=== PATIENT | female | born 1945 | race African-American/Black ===

== ENCOUNTER → 2017-10-27 | Outpatient (CLI) | payer MEDICARE, BC ==
[~2017-10-27] MED LIST: ASPI-1159 PO; BECL8.7A6 IH; CLOP75TA16 PO; COR3 PO; COUMADIN PO; ERGO2500 PO; FURO-152 PO; LEVO125T8 PO; LOSA25TA3 PO; MONT10TA21 PO; POTA10TA11 PO; PROT40 PO; SIMV40TA5 PO; ZET10 PO
== END | disposition home or self-care (01) ==
LOC: CT 15:56
PROVIDERS: ATTEND Neurological Surgery
DX: M51.26 Other intervertebral disc displacement, lumbar region (principal); M48.061 Spinal stenosis, lumbar region without neurogenic claudication; N28.1 Cyst of kidney, acquired; N20.0 Calculus of kidney; I77.811 Abdominal aortic ectasia; K57.90 Diverticulosis of intestine, part unspecified, without perforation or abscess without bleeding
CPT/HCPCS: 72131

== ENCOUNTER 2018-03-02 15:41 | Inpatient (IN) | payer MEDICARE, BC ==
[~2018-03-02] VITALS: Ht 154.9 cm; Wt 50.8 kg
[2018-03-02] MEDS ORDERED: AZITHROMYCIN 500 MG in DEXT 5% WATER 250 ML IV ONE (16:45)
[2018-03-02] MEDS ORDERED: CEFTRIAXONE 2 G PREMIX 50 ML IV ONE (16:45)
[2018-03-02 17:31] LABS: BASOPHILS % 0.4 % (0.0-2.0); EOSINOPHILS % 0.9 % (0.0-5.0); HEMATOCRIT. 35.5 % (36.0-48.0); HEMOGLOBIN. 11.7 g/dL (12.0-16.0); LYMPHOCYTES % 28.2 % (20.0-50.0); MEAN CORPUSCULAR HEMOGLOBIN 29.5 pg (28.0-32.0); MEAN CORPUSCULAR VOLUME 89.5 fL (81.0-99.0); MEAN PLATELET VOLUME 7.6 fl (7.4-10.4); MONOCYTES % 9.7 % (2.0-8.0); NEUTROPHILS % 60.8 % (40.0-76.0); PLATELET 217 x1000/uL (130-400); RED BLOOD CELL COUNT 3.96 mill/uL (4.2-5.4); RED CELL DISTRIBUTION WIDTH 15.9 % (11.6-14.6)
[2018-03-02 17:38] LABS: CHLORIDE 109 mEq/L (98-107)
[2018-03-02 17:39] LABS: PROTHROMBIN TIME 10.4 sec (9.1-11.1)
[2018-03-02] MEDS ORDERED: SODIUM CHLORIDE 0.9% 1,000 ML IV ONE (17:52)
[2018-03-02 19:24] LABS: CLARITY URINE CLEAR (CLEAR); COLOR URINE YELLOW (YELLOW); KETONES URINE NEGATIVE (NEGATIVE); LEUKOCYTE ESTERASE URINE 1+ (NEGATIVE); NITRITE URINE NEGATIVE (NEGATIVE); OCCULT BLOOD URINE NEGATIVE (NEGATIVE); PH URINE 5.5 (4.5-8.0); PROTEIN URINE TRACE (NEGATIVE)
[2018-03-02] MEDS ORDERED: CLONIDINE 0.1MG TABLET PO PRN (23:15)
[2018-03-02] MEDS ORDERED: ENOXAPARIN 40MG/0.4ML SYR SUBCUT SCH (23:15)
[2018-03-02] MEDS: HYDROMORPHONE HCL/PF 2MG/ML CPJ IV PRN (23:35)
[2018-03-03] VITALS (7 sets, daily range): BP systolic 117–138; BP diastolic 64–77
[2018-03-03] MEDS: AZITHROMYCIN 500 MG in DEXT 5% WATER 250 ML IV SCH (00:11)
[2018-03-03] MEDS: LORAZEPAM 2MG/ML CPJ IV PRN (05:13)
[2018-03-03] MEDS ORDERED: METHYLPREDNISOLONE SOD SUCC 125 MG/2 ML VIAL IV SCH (06:00)
[2018-03-03] MEDS ORDERED: CEFTRIAXONE SODIUM 1 G/VIAL IM SCH (06:00)
[2018-03-03] MEDS: IPRATROPIUM/ALBUTEROL 0.5-3(2.5)MG/3ML NEB HHN PRN ×2 (08:01→14:50)
[2018-03-03] MEDS ORDERED: ENOXAPARIN 30MG/0.3ML SYR SUBCUT SCH (09:00)
[2018-03-03] MEDS: HYDROMORPHONE HCL/PF 2MG/ML CPJ IV PRN ×2 (10:27→22:10)
[2018-03-03] MEDS: POTASSIUM CHLORIDE 20MEQ TABLET SR PO SCH (12:22)
[2018-03-03] MEDS: FUROSEMIDE 40MG TABLET PO SCH (12:22)
[2018-03-03 13:17] LABS: HEMATOCRIT. 34.6 % (36.0-48.0); HEMOGLOBIN. 11.3 g/dL (12.0-16.0); MEAN CORPUSCULAR HEMOGLOBIN 29.4 pg (28.0-32.0); MEAN PLATELET VOLUME 8.2 fl (7.4-10.4); PLATELET 236 x1000/uL (130-400); RED BLOOD CELL COUNT 3.84 mill/uL (4.2-5.4); RED CELL DISTRIBUTION WIDTH 15.6 % (11.6-14.6)
[2018-03-03] MEDS: ONDANSETRON HCL 4MG/2ML INJ IV PRN (14:45)
[2018-03-03] MEDS: BUDESONIDE 0.5MG/2ML NEB HHN SCH (14:50)
[2018-03-03] MEDS ORDERED: SODIUM CHLORIDE 45ML SPRAY NS PRN (15:00)
[2018-03-03 16:48] LABS: PLATELET ESTIMATE NORMAL
[2018-03-03] MEDS: GUAIFENESIN 600MG ER TABLET PO SCH (20:47)
[2018-03-03] MEDS: ACETAMINOPHEN 325MG TABLET PO PRN (20:48)
[2018-03-03] MEDS: FLUTICASONE PROPIONATE 50MCG/SPRAY BOTTLE BOTHNSTRLS SCH (21:00)
[2018-03-04] VITALS: BP 132/74
[2018-03-04] MEDS: AZITHROMYCIN 500 MG in DEXT 5% WATER 250 ML IV SCH ×2
[2018-03-04] MEDS: ONDANSETRON HCL 4MG/2ML INJ IV PRN (03:15)
[2018-03-04] MEDS: BUDESONIDE 0.5MG/2ML NEB HHN SCH ×3 (03:57→21:38)
[2018-03-04] MEDS: IPRATROPIUM/ALBUTEROL 0.5-3(2.5)MG/3ML NEB HHN PRN ×2 (03:58→08:36)
[2018-03-04 04:00] VITALS: BP 139/71
[2018-03-04 08:00] VITALS: BP 123/59
[2018-03-04] MEDS ORDERED: INFLUENZA VIRUS VACCINE(AFLURIA) 0.5ML SYR IM ONE (09:00)
[2018-03-04] MEDS ORDERED: PNEUMOCOCCAL 23-VAL P-SAC VAC 0.5 ML IM ONE (09:00)
[2018-03-04] MEDS ORDERED: ENOXAPARIN 40MG/0.4ML SYR SUBCUT SCH (09:00)
[2018-03-04] MEDS: FUROSEMIDE 40MG TABLET PO SCH (09:13)
[2018-03-04] MEDS: POTASSIUM CHLORIDE 20MEQ TABLET SR PO SCH (09:13)
[2018-03-04] MEDS: GUAIFENESIN 600MG ER TABLET PO SCH ×2 (09:13→20:50)
[2018-03-04 10:08] LABS: BASOPHILS % 0.3 % (0.0-2.0); EOSINOPHILS % 0.7 % (0.0-5.0); HEMATOCRIT. 34.3 % (36.0-48.0); LYMPHOCYTES % 22.8 % (20.0-50.0); MEAN CORPUSCULAR HEMOGLOBIN 29.1 pg (28.0-32.0); MEAN CORPUSCULAR VOLUME 90.6 fL (81.0-99.0); MEAN PLATELET VOLUME 8.3 fl (7.4-10.4); MONOCYTES % 9.2 % (2.0-8.0); PLATELET 224 x1000/uL (130-400); RED BLOOD CELL COUNT 3.79 mill/uL (4.2-5.4)
[2018-03-04 12:00] VITALS: BP 134/80
[2018-03-04] MEDS: LORAZEPAM 2MG/ML CPJ IV PRN (12:31)
[2018-03-04] MEDS: FLUTICASONE PROPIONATE 50MCG/SPRAY BOTTLE BOTHNSTRLS SCH ×2 (12:31→20:59)
[2018-03-04 16:00] VITALS: BP 145/82
[2018-03-04] MEDS: IPRATROPIUM/ALBUTEROL 0.5-3(2.5)MG/3ML NEB HHN SCH ×2 (16:40→21:38)
[2018-03-04] MEDS: HYDROMORPHONE HCL/PF 2MG/ML CPJ IV PRN (17:05)
[2018-03-04] MEDS: CEFTRIAXONE 1 G PREMIX 50 ML IV SCH (18:34)
[2018-03-04] MEDS ORDERED: ALPRAZOLAM 0.5 MG TABLET PO PRN (18:45)
[2018-03-05] VITALS: BP 109/66
[2018-03-05] MEDS: AZITHROMYCIN 500 MG in DEXT 5% WATER 250 ML IV SCH (00:17)
[2018-03-05] MEDS: ALPRAZOLAM 0.5 MG TABLET PO PRN ×2 (00:17→22:07)
[2018-03-05] MEDS: ACETYLCYSTEINE 100MG/ML 10% VIAL 4ML INH SCH ×3 (01:09→16:28)
[2018-03-05] MEDS: IPRATROPIUM/ALBUTEROL 0.5-3(2.5)MG/3ML NEB HHN SCH ×6 (01:09→20:49)
[2018-03-05 04:00] VITALS: BP 112/54
[2018-03-05 05:30] LABS: BASOPHILS % 0.7 % (0.0-2.0); EOSINOPHILS % 1.5 % (0.0-5.0); HEMATOCRIT. 30.6 % (36.0-48.0); HEMOGLOBIN. 10.1 g/dL (12.0-16.0); LYMPHOCYTES % 33.4 % (20.0-50.0); MEAN CORPUSCULAR HEMOGLOBIN 29.4 pg (28.0-32.0); MEAN CORPUSCULAR VOLUME 89.1 fL (81.0-99.0); MONOCYTES % 6.2 % (2.0-8.0); NEUTROPHILS % 58.2 % (40.0-76.0); PLATELET 202 x1000/uL (130-400); RED BLOOD CELL COUNT 3.43 mill/uL (4.2-5.4); RED CELL DISTRIBUTION WIDTH 15.5 % (11.6-14.6)
[2018-03-05] MEDS: FUROSEMIDE 20MG/2ML VIAL IVP SCH (08:53)
[2018-03-05] MEDS: GUAIFENESIN 600MG ER TABLET PO SCH ×2 (08:54→21:24)
[2018-03-05] MEDS: POTASSIUM CHLORIDE 20MEQ TABLET SR PO SCH (08:54)
[2018-03-05] MEDS: ENOXAPARIN 30MG/0.3ML SYR SUBCUT SCH (08:55)
[2018-03-05] MEDS: FLUTICASONE PROPIONATE 50MCG/SPRAY BOTTLE BOTHNSTRLS SCH ×2 (09:11→21:24)
[2018-03-05] MEDS: BUDESONIDE 0.5MG/2ML NEB HHN SCH ×2 (09:28→20:49)
[2018-03-05] MEDS: HYDROMORPHONE HCL/PF 2MG/ML CPJ IV PRN (09:36)
[2018-03-05 12:00] VITALS: BP 99/67
[2018-03-05] MEDS: ONDANSETRON HCL 4MG TABLET PO PRN (14:00)
[2018-03-05 16:00] VITALS: BP 103/61
[2018-03-05] MEDS: CEFTRIAXONE 1 G PREMIX 50 ML IV SCH (17:01)
[2018-03-05] MEDS: ONDANSETRON HCL 4MG/2ML INJ IV PRN (17:16)
[2018-03-05 20:00] VITALS: BP 114/48
[2018-03-06] VITALS: BP 104/52
[2018-03-06] MEDS: ONDANSETRON HCL 4MG TABLET PO PRN
[2018-03-06] MEDS: ONDANSETRON HCL 4MG/2ML INJ IV PRN (00:07)
[2018-03-06] MEDS: AZITHROMYCIN 500 MG in DEXT 5% WATER 250 ML IV SCH (00:30)
[2018-03-06] MEDS: IPRATROPIUM/ALBUTEROL 0.5-3(2.5)MG/3ML NEB HHN SCH ×6 (01:19→21:09)
[2018-03-06] MEDS: ACETYLCYSTEINE 100MG/ML 10% VIAL 4ML INH SCH ×3 (01:20→16:29)
[2018-03-06 04:00] VITALS: BP 100/54
[2018-03-06 04:40] VITALS: BP 116/60
[2018-03-06] MEDS: HYDROMORPHONE HCL/PF 2MG/ML CPJ IV PRN ×2 (04:42→14:30)
[2018-03-06 06:26] LABS: HEMATOCRIT. 32.5 % (36.0-48.0); HEMOGLOBIN. 10.8 g/dL (12.0-16.0); MEAN CORPUSCULAR HEMOGLOBIN 29.9 pg (28.0-32.0); MEAN CORPUSCULAR VOLUME 90.1 fL (81.0-99.0); MEAN PLATELET VOLUME 8.2 fl (7.4-10.4); PLATELET 219 x1000/uL (130-400); RED BLOOD CELL COUNT 3.61 mill/uL (4.2-5.4); RED CELL DISTRIBUTION WIDTH 15.4 % (11.6-14.6)
[2018-03-06] MEDS: BUDESONIDE 0.5MG/2ML NEB HHN SCH (09:00)
[2018-03-06] MEDS: METHYLPREDNISOLONE SOD SUCC 40 MG/ML VIAL IV SCH ×3 (09:47→17:25)
[2018-03-06] MEDS: FUROSEMIDE 20MG/2ML VIAL IVP SCH (09:47)
[2018-03-06] MEDS: POTASSIUM CHLORIDE 20MEQ TABLET SR PO SCH (09:48)
[2018-03-06] MEDS: GUAIFENESIN 600MG ER TABLET PO SCH ×2 (09:48→20:55)
[2018-03-06] MEDS: PANTOPRAZOLE 40MG DR TABLET PO SCH ×2 (09:48→20:55)
[2018-03-06] MEDS: ENOXAPARIN 30MG/0.3ML SYR SUBCUT SCH (09:49)
[2018-03-06 11:22] LABS: PLATELET ESTIMATE NORMAL
[2018-03-06 12:00] VITALS: BP 113/74
[2018-03-06] MEDS ORDERED: MAGNESIUM 1 G PREMIX 100 ML IV SCH (14:00)
[2018-03-06 16:00] VITALS: BP 105/57
[2018-03-06] MEDS: FLUTICASONE PROPIONATE 50MCG/SPRAY BOTTLE BOTHNSTRLS SCH ×2 (17:26→20:54)
[2018-03-06] MEDS: CEFEPIME 1,000 MG in DEXTROSE 5% WATER 50 ML IV SCH (17:26)
[2018-03-06 20:00] VITALS: BP 107/52
[2018-03-06] MEDS: ALPRAZOLAM 0.5 MG TABLET PO PRN (22:47)
[2018-03-07] VITALS: BP 125/59
[2018-03-07] MEDS: IPRATROPIUM/ALBUTEROL 0.5-3(2.5)MG/3ML NEB HHN SCH ×6 (00:41→21:24)
[2018-03-07] MEDS: ACETYLCYSTEINE 100MG/ML 10% VIAL 4ML INH SCH ×3 (00:41→15:29)
[2018-03-07] MEDS: METHYLPREDNISOLONE SOD SUCC 40 MG/ML VIAL IV SCH ×2 (01:15→08:47)
[2018-03-07] MEDS: ACETAMINOPHEN 650MG/20.3ML UDC GT PRN ×2 (01:24→12:13)
[2018-03-07 04:00] VITALS: BP 112/55
[2018-03-07] MEDS: HYDROMORPHONE HCL/PF 2MG/ML CPJ IV PRN ×3 (05:06→22:51)
[2018-03-07 05:34] LABS: HEMATOCRIT. 33.2 % (36.0-48.0); HEMOGLOBIN. 10.9 g/dL (12.0-16.0); MEAN CORPUSCULAR HEMOGLOBIN 29.2 pg (28.0-32.0); MEAN CORPUSCULAR VOLUME 88.9 fL (81.0-99.0); MEAN PLATELET VOLUME 7.7 fl (7.4-10.4); PLATELET 233 x1000/uL (130-400); RED BLOOD CELL COUNT 3.73 mill/uL (4.2-5.4); RED CELL DISTRIBUTION WIDTH 15.6 % (11.6-14.6)
[2018-03-07 08:00] VITALS: BP 108/58
[2018-03-07] MEDS: GUAIFENESIN 600MG ER TABLET PO SCH ×2 (08:47→21:39)
[2018-03-07] MEDS: PANTOPRAZOLE 40MG DR TABLET PO SCH ×2 (08:47→21:39)
[2018-03-07] MEDS: ENOXAPARIN 30MG/0.3ML SYR SUBCUT SCH (08:48)
[2018-03-07] MEDS: CEFEPIME 1,000 MG in DEXTROSE 5% WATER 50 ML IV SCH (08:49)
[2018-03-07] MEDS ORDERED: LACTULOSE 20G/30ML UDC PO PRN (10:15)
[2018-03-07] MEDS ORDERED: LACTULOSE 20G/30ML UDC PO NR (10:15)
[2018-03-07] MEDS ORDERED: SODIUM POLYSTYRENE SULFONATE 15 G/60 ML BOT PO SCH (11:00)
[2018-03-07 12:00] VITALS: BP 112/49
[2018-03-07 12:42] LABS: PLATELET ESTIMATE NORMAL
[2018-03-07 16:00] VITALS: BP 148/80
[2018-03-07] MEDS: DOCUSATE SODIUM 100MG CAPSULE PO SCH (16:32)
[2018-03-07] MEDS: SODIUM CHLORIDE 0.9% 1,000 ML IV SCH (16:32)
[2018-03-07] MEDS: LACTULOSE 20G/30ML UDC PO SCH ×2 (17:00→21:52)
[2018-03-07 20:00] VITALS: BP_SYST 127; BP_SYST 131; BP_SYST 139; BP_DIAS 66; BP_DIAS 68; BP_DIAS 87
[2018-03-07] MEDS: BUDESONIDE 0.5MG/2ML NEB HHN SCH (21:24)
[2018-03-07] MEDS: POLYETHYLENE GLYCOL 3350 (17GM) 1 DOSE PACK PO SCH (21:39)
[2018-03-08] VITALS: BP 132/72
[2018-03-08] MEDS: ACETYLCYSTEINE 100MG/ML 10% VIAL 4ML INH SCH ×3 (01:04→16:11)
[2018-03-08] MEDS: IPRATROPIUM/ALBUTEROL 0.5-3(2.5)MG/3ML NEB HHN SCH ×6 (01:05→20:59)
[2018-03-08 04:00] VITALS: BP 130/73
[2018-03-08] MEDS: ACETAMINOPHEN 325MG TABLET PO PRN (05:04)
[2018-03-08] MEDS: HYDROMORPHONE HCL/PF 2MG/ML CPJ IV PRN ×3 (06:17→17:47)
[2018-03-08] MEDS ORDERED: PREDNISONE 20MG TABLET PO SCH (09:00)
[2018-03-08] MEDS: BUDESONIDE 0.5MG/2ML NEB HHN SCH ×2 (10:07→20:59)
[2018-03-08] MEDS: PANTOPRAZOLE 40MG DR TABLET PO SCH ×2 (10:50→20:48)
[2018-03-08] MEDS: GUAIFENESIN 600MG ER TABLET PO SCH ×2 (10:50→20:48)
[2018-03-08] MEDS: DOCUSATE SODIUM 100MG CAPSULE PO SCH ×2 (10:50→17:46)
[2018-03-08] MEDS: LACTULOSE 20G/30ML UDC PO SCH (10:50)
[2018-03-08] MEDS: CEFEPIME 1,000 MG in DEXTROSE 5% WATER 50 ML IV SCH (10:51)
[2018-03-08] MEDS: ENOXAPARIN 30MG/0.3ML SYR SUBCUT SCH (10:52)
[2018-03-08 11:04] LABS: BASOPHILS % 0.3 % (0.0-2.0); EOSINOPHILS % 1.2 % (0.0-5.0); HEMATOCRIT. 32.4 % (36.0-48.0); HEMOGLOBIN. 10.3 g/dL (12.0-16.0); LYMPHOCYTES % 22.7 % (20.0-50.0); MEAN CORPUSCULAR HEMOGLOBIN 28.7 pg (28.0-32.0); MEAN CORPUSCULAR VOLUME 90.5 fL (81.0-99.0); MEAN PLATELET VOLUME 7.5 fl (7.4-10.4); MONOCYTES % 5.1 % (2.0-8.0); NEUTROPHILS % 70.7 % (40.0-76.0); PLATELET 236 x1000/uL (130-400); RED BLOOD CELL COUNT 3.58 mill/uL (4.2-5.4); RED CELL DISTRIBUTION WIDTH 15.5 % (11.6-14.6)
[2018-03-08] MEDS: SODIUM CHLORIDE 0.9% 1,000 ML IV SCH (11:14)
[2018-03-08 12:00] VITALS: BP_SYST 127; BP_SYST 137; BP_SYST 145; BP_DIAS 64; BP_DIAS 77; BP_DIAS 82
[2018-03-08] MEDS ORDERED: BISACODYL 5MG TABLET PO PRN (12:00)
[2018-03-08] MEDS: ONDANSETRON HCL 4MG/2ML INJ IV PRN (14:19)
[2018-03-08 16:00] VITALS: BP 121/66
[2018-03-08] MEDS ORDERED: DOCUSATE SODIUM 100MG CAPSULE PO SCH (17:00)
[2018-03-08 20:00] VITALS: BP 145/76
[2018-03-08] MEDS: POLYETHYLENE GLYCOL 3350 (17GM) 1 DOSE PACK PO SCH (20:48)
[2018-03-08] MEDS ORDERED: FLUTICASONE PROPIONATE 50MCG/SPRAY BOTTLE BOTHNSTRLS SCH (21:00)
[2018-03-08] MEDS: ALPRAZOLAM 0.5 MG TABLET PO PRN (22:38)
[2018-03-09] VITALS: BP_SYST 135; BP_SYST 144; BP_DIAS 65; BP_DIAS 67; BP_DIAS 74
[2018-03-09] MEDS: ACETYLCYSTEINE 100MG/ML 10% VIAL 4ML INH SCH (00:38)
[2018-03-09] MEDS: IPRATROPIUM/ALBUTEROL 0.5-3(2.5)MG/3ML NEB HHN SCH ×2 (00:39→04:47)
[2018-03-09] MEDS: HYDROMORPHONE HCL/PF 2MG/ML CPJ IV PRN (03:23)
[2018-03-09 04:00] VITALS: BP 153/89
[2018-03-09 04:43] VITALS: BP 111/51
== END 2018-03-09 06:52 | disposition home or self-care (01) | DRG 871 ==
LOC: ER 16:12 → 5WST 18:12 → EDBEDREQ 18:13 → EDBEDREQTM 18:13 → EDBEDREQ 18:41 → ENRESERV 22:34 → EDBEDREQ 23:16
PROVIDERS: ADMIT Internal Medicine Nephrology; ATTEND Internal Medicine Nephrology
DX: A41.52 Sepsis due to Pseudomonas (principal); J96.00 Acute respiratory failure, unspecified whether with hypoxia or hypercapnia; I50.23 Acute on chronic systolic (congestive) heart failure; J96.90 Respiratory failure, unspecified, unspecified whether with hypoxia or hypercapnia; J44.0 Chronic obstructive pulmonary disease with (acute) lower respiratory infection; E44.1 Mild protein-calorie malnutrition; I13.0 Hypertensive heart and chronic kidney disease with heart failure and stage 1 through stage 4 chronic kidney disease, or unspecified chronic kidney disease; I69.354 Hemiplegia and hemiparesis following cerebral infarction affecting left non-dominant side; J44.1 Chronic obstructive pulmonary disease with (acute) exacerbation; N17.9 Acute kidney failure, unspecified; N39.0 Urinary tract infection, site not specified; J20.9 Acute bronchitis, unspecified; B34.9 Viral infection, unspecified; D63.8 Anemia in other chronic diseases classified elsewhere; D72.821 Monocytosis (symptomatic); E03.9 Hypothyroidism, unspecified; E78.00 Pure hypercholesterolemia, unspecified; E78.5 Hyperlipidemia, unspecified; E83.52 Hypercalcemia; E87.5 Hyperkalemia; F12.90 Cannabis use, unspecified, uncomplicated; I25.10 Atherosclerotic heart disease of native coronary artery without angina pectoris; I25.2 Old myocardial infarction; I25.5 Ischemic cardiomyopathy; I48.91 Unspecified atrial fibrillation; I49.3 Ventricular premature depolarization; K43.9 Ventral hernia without obstruction or gangrene; K59.00 Constipation, unspecified; N18.9 Chronic kidney disease, unspecified; Z66 Do not resuscitate; Z87.891 Personal history of nicotine dependence; Z95.5 Presence of coronary angioplasty implant and graft; Z95.810 Presence of automatic (implantable) cardiac defibrillator; Z99.81 Dependence on supplemental oxygen; Z68.21 Body mass index [BMI] 21.0-21.9, adult; Z88.8 Allergy status to other drugs, medicaments and biological substances; Z79.899 Other long term (current) drug therapy; Z79.82 Long term (current) use of aspirin
CPT/HCPCS: 36415; 71045; 80048; 83605; 83735; 83880; 84484; 87070; 87077; 87186; 87804; 90686; 90732; 93005; 93306; 94640; 96365; 97116; 97162; 97166; 97530; 97535; 99285; C1893; J0456; J0692; J0696; J1170; J1650; J1940; J2060; J2405; J2920; J2930; J3475; J7030; J7040; J7060; J7512; J7608; J7620; J7626; Q0162

== ENCOUNTER 2018-04-13 13:17 | Inpatient (IN) | payer MEDICARE, BC ==
[~2018-04-13] VITALS: Ht 154.9 cm; Wt 61.5 kg
[2018-04-13 12:00] VITALS: BP 131/64
[2018-04-13 13:40] VITALS: BP 131/64
[2018-04-13] MEDS ORDERED: HYDR2TAB4 PO (15:31)
[2018-04-13 16:00] VITALS: BP 104/38
[2018-04-13] MEDS ORDERED: ENOXAPARIN 40MG/0.4ML SYR SUBCUT SCH ×2 (17:00→18:30)
[2018-04-13 17:28] LABS: BASOPHILS % 0.9 % (0.0-2.0); EOSINOPHILS % 3.4 % (0.0-5.0); HEMATOCRIT. 33.7 % (36.0-48.0); HEMOGLOBIN. 10.7 g/dL (12.0-16.0); LYMPHOCYTES % 35.5 % (20.0-50.0); MEAN CORPUSCULAR HEMOGLOBIN 28.3 pg (28.0-32.0); MEAN CORPUSCULAR VOLUME 88.7 fL (81.0-99.0); MEAN PLATELET VOLUME 8.1 fl (7.4-10.4); MONOCYTES % 9.4 % (2.0-8.0); NEUTROPHILS % 50.8 % (40.0-76.0); PLATELET 227 x1000/uL (130-400); RED BLOOD CELL COUNT 3.79 mill/uL (4.2-5.4)
[2018-04-13] MEDS ORDERED: CLONIDINE 0.1MG TABLET PO PRN (18:00)
[2018-04-13] MEDS ORDERED: DOCUSATE SODIUM 100MG CAPSULE PO PRN (18:00)
[2018-04-13] MEDS ORDERED: LORAZEPAM 2MG/ML CPJ IV PRN (18:00)
[2018-04-13] MEDS: METHYLPREDNISOLONE SOD SUCC 40 MG/ML VIAL IV SCH (18:32)
[2018-04-13] MEDS: HYDROMORPHONE HCL/PF 2MG/ML CPJ IV PRN (18:33)
[2018-04-13 20:00] VITALS: BP 90/38
[2018-04-13 23:59] VITALS: BP 100/30
[2018-04-14] VITALS: BP 112/55
[2018-04-14] MEDS: METHYLPREDNISOLONE SOD SUCC 40 MG/ML VIAL IV SCH ×4 (01:48→23:09)
[2018-04-14 03:20] LABS: CLARITY URINE CLEAR (CLEAR); COLOR URINE YELLOW (YELLOW); KETONES URINE NEGATIVE (NEGATIVE); LEUKOCYTE ESTERASE URINE TRACE (NEGATIVE); NITRITE URINE NEGATIVE (NEGATIVE); OCCULT BLOOD URINE NEGATIVE (NEGATIVE); PROTEIN URINE NEGATIVE (NEGATIVE); SPECIFIC GRAVITY URINE 1.015 (1.005-1.030); UROBILINOGEN URINE 0.2 E.U./dL (0.2-1.0)
[2018-04-14 04:00] VITALS: BP 109/62
[2018-04-14 04:01] LABS: CANNABINOID URINE SCREEN NEGATIVE (NEGATIVE); PHENCYCLIDINE URINE SCREEN NEGATIVE (NEGATIVE)
[2018-04-14 04:02] LABS: *AMPHETAMINES SCREEN URINE NEGATIVE (NEGATIVE); *BARBITURATES SCREEN URINE NEGATIVE (NEGATIVE); *BENZODIAZEPINES SCREEN URINE PRESUMTIVE POSITIVE (NEGATIVE); *COCAINE SCREEN URINE NEGATIVE (NEGATIVE); METHADONE URINE SCREEN NEGATIVE (NEGATIVE)
[2018-04-14 04:03] LABS: OPIATES URINE SCREEN PRESUMTIVE POSITIVE (NEGATIVE)
[2018-04-14] MEDS: HYDROMORPHONE HCL/PF 2MG/ML CPJ IV PRN ×3 (04:13→22:57)
[2018-04-14 06:49] LABS: BASOPHILS % 0.3 % (0.0-2.0); HEMATOCRIT. 32.4 % (36.0-48.0); HEMOGLOBIN. 10.8 g/dL (12.0-16.0); LYMPHOCYTES % 19.8 % (20.0-50.0); MEAN CORPUSCULAR HEMOGLOBIN 29.3 pg (28.0-32.0); MEAN CORPUSCULAR VOLUME 88.2 fL (81.0-99.0); MEAN PLATELET VOLUME 8.4 fl (7.4-10.4); MONOCYTES % 1.3 % (2.0-8.0); NEUTROPHILS % 78.6 % (40.0-76.0); PLATELET 232 x1000/uL (130-400); RED BLOOD CELL COUNT 3.68 mill/uL (4.2-5.4); RED CELL DISTRIBUTION WIDTH 14.6 % (11.6-14.6)
[2018-04-14 08:00] VITALS: BP 127/69
[2018-04-14 08:32] LABS: PHOSPHORUS 4.3 mg/dL (2.5-4.9)
[2018-04-14] MEDS: IPRATROPIUM/ALBUTEROL 0.5-3(2.5)MG/3ML NEB INH PRN ×2 (09:15→16:34)
[2018-04-14] MEDS: CLOPIDOGREL 75MG TABLET PO SCH (11:00)
[2018-04-14] MEDS: SODIUM CHLORIDE 0.9% 1,000 ML IV SCH (11:30)
[2018-04-14] MEDS: CEFTRIAXONE 1 G PREMIX 50 ML IV SCH (11:30)
[2018-04-14 11:36] VITALS: BP 105/50
[2018-04-14] MEDS: FUROSEMIDE 20MG TABLET PO SCH ×2 (12:37→21:44)
[2018-04-14] MEDS: ASPIRIN 81MG EC TABLET PO SCH (12:37)
[2018-04-14 15:53] VITALS: BP 115/60
[2018-04-14] MEDS: ENOXAPARIN 30MG/0.3ML SYR SUBCUT SCH (17:44)
[2018-04-14 20:00] VITALS: BP 136/55
[2018-04-15] VITALS (8 sets, daily range): BP systolic 128–141; BP diastolic 58–78
[2018-04-15] MEDS: IPRATROPIUM/ALBUTEROL 0.5-3(2.5)MG/3ML NEB INH PRN ×2 (04:56→18:46)
[2018-04-15] MEDS: SODIUM CHLORIDE 0.9% 1,000 ML IV SCH ×2 (05:30→23:23)
[2018-04-15] MEDS: HYDROMORPHONE HCL/PF 2MG/ML CPJ IV PRN ×2 (06:35→13:37)
[2018-04-15] MEDS: FUROSEMIDE 20MG TABLET PO SCH ×2 (08:28→21:01)
[2018-04-15] MEDS: ASPIRIN 81MG EC TABLET PO SCH (08:28)
[2018-04-15] MEDS: CLOPIDOGREL 75MG TABLET PO SCH (08:28)
[2018-04-15 08:35] LABS: BASOPHILS % 0.1 % (0.0-2.0); HEMATOCRIT. 29.6 % (36.0-48.0); HEMOGLOBIN. 9.7 g/dL (12.0-16.0); LYMPHOCYTES % 14.2 % (20.0-50.0); MEAN CORPUSCULAR HEMOGLOBIN 28.8 pg (28.0-32.0); MEAN CORPUSCULAR VOLUME 87.8 fL (81.0-99.0); MEAN PLATELET VOLUME 8.7 fl (7.4-10.4); MONOCYTES % 5.8 % (2.0-8.0); NEUTROPHILS % 79.9 % (40.0-76.0); PLATELET 248 x1000/uL (130-400); RED BLOOD CELL COUNT 3.37 mill/uL (4.2-5.4)
[2018-04-15] MEDS: METHYLPREDNISOLONE SOD SUCC 40 MG/ML VIAL IV SCH (10:17)
[2018-04-15] MEDS ORDERED: COR3 PO (11:43)
[2018-04-15] MEDS ORDERED: ALPR1TAB2 PO (11:43)
[2018-04-15] MEDS ORDERED: ATOR20TA65 PO (11:43)
[2018-04-15] MEDS ORDERED: flovent INH (11:46)
[2018-04-15] MEDS: CEFTRIAXONE 1 G PREMIX 50 ML IV SCH (11:48)
[2018-04-15] MEDS ORDERED: MONT10TA21 PO (11:48)
[2018-04-15] MEDS ORDERED: FURO-151 PO (11:48)
[2018-04-15] MEDS ORDERED: LEVO50TA8 PO (11:48)
[2018-04-15] MEDS ORDERED: HYDR2TAB7 PO (11:48)
[2018-04-15] MEDS ORDERED: PROT40 PO (11:48)
[2018-04-15] MEDS ORDERED: MONTELUKAST SODIUM 10MG TABLET PO SCH (12:00)
[2018-04-15] MEDS: ONDANSETRON HCL 4MG/2ML INJ IV PRN (13:38)
[2018-04-15] MEDS: CARVEDILOL 3.125 MG TABLET PO SCH ×2 (14:59→21:00)
[2018-04-15] MEDS: LEVOTHYROXINE SODIUM 50MCG TABLET PO SCH (14:59)
[2018-04-15] MEDS: LIDOCAINE 5% PATCH TOP SCH (14:59)
[2018-04-15] MEDS: ATORVASTATIN CALCIUM 20MG TABLET PO SCH (14:59)
[2018-04-15] MEDS ORDERED: METHYLPREDNISOLONE SOD SUCC 40 MG/ML VIAL IV SCH (17:00)
[2018-04-15] MEDS: PREDNISONE 20MG TABLET PO SCH (17:52)
[2018-04-15] MEDS: DOCUSATE SODIUM 100MG CAPSULE PO SCH (17:52)
[2018-04-15] MEDS: AZITHROMYCIN 500 MG TABLET PO SCH (17:52)
[2018-04-15] MEDS: ENOXAPARIN 30MG/0.3ML SYR SUBCUT SCH (18:00)
[2018-04-15] MEDS: BUDESONIDE 0.5MG/2ML NEB HHN SCH (18:30)
[2018-04-15] MEDS: GUAIFENESIN 600MG ER TABLET PO SCH (21:01)
[2018-04-16] VITALS: BP 158/83
[2018-04-16] MEDS: IPRATROPIUM/ALBUTEROL 0.5-3(2.5)MG/3ML NEB INH PRN ×6 (00:31→21:42)
[2018-04-16] MEDS: HYDROMORPHONE HCL/PF 2MG/ML CPJ IV PRN ×4 (02:45→17:26)
[2018-04-16 04:00] VITALS: BP 133/70
[2018-04-16] MEDS: PANTOPRAZOLE 40MG DR TABLET PO SCH (06:50)
[2018-04-16] MEDS: LEVOTHYROXINE SODIUM 50MCG TABLET PO SCH ×2 (06:50→06:56)
[2018-04-16 07:30] LABS: BASOPHILS % 0.1 % (0.0-2.0); HEMATOCRIT. 29.9 % (36.0-48.0); HEMOGLOBIN. 9.8 g/dL (12.0-16.0); LYMPHOCYTES % 10.6 % (20.0-50.0); MEAN CORPUSCULAR VOLUME 88.7 fL (81.0-99.0); MEAN PLATELET VOLUME 8.3 fl (7.4-10.4); MONOCYTES % 6.1 % (2.0-8.0); NEUTROPHILS % 83.2 % (40.0-76.0); PLATELET 251 x1000/uL (130-400); RED BLOOD CELL COUNT 3.37 mill/uL (4.2-5.4); RED CELL DISTRIBUTION WIDTH 15.1 % (11.6-14.6)
[2018-04-16 08:00] VITALS: BP 118/67
[2018-04-16] MEDS: BUDESONIDE 0.5MG/2ML NEB HHN SCH ×2 (08:06→21:42)
[2018-04-16] MEDS: AZITHROMYCIN 500 MG TABLET PO SCH (09:25)
[2018-04-16] MEDS: FUROSEMIDE 20MG TABLET PO SCH ×2 (09:25→20:35)
[2018-04-16] MEDS: PREDNISONE 20MG TABLET PO SCH ×2 (09:25→17:33)
[2018-04-16] MEDS: ATORVASTATIN CALCIUM 20MG TABLET PO SCH (09:25)
[2018-04-16] MEDS: ASPIRIN 81MG EC TABLET PO SCH (09:25)
[2018-04-16] MEDS: CARVEDILOL 3.125 MG TABLET PO SCH ×2 (09:25→20:34)
[2018-04-16] MEDS: DOCUSATE SODIUM 100MG CAPSULE PO SCH ×2 (09:25→17:33)
[2018-04-16] MEDS: CLOPIDOGREL 75MG TABLET PO SCH (09:25)
[2018-04-16] MEDS: GUAIFENESIN 600MG ER TABLET PO SCH ×2 (09:26→20:35)
[2018-04-16] MEDS: CEFTRIAXONE 1 G PREMIX 50 ML IV SCH (11:08)
[2018-04-16 11:10] VITALS: BP 113/56
[2018-04-16] MEDS: LIDOCAINE 5% PATCH TOP SCH (11:39)
[2018-04-16] MEDS: TRAMADOL 50MG TABLET PO PRN (11:39)
[2018-04-16] MEDS ORDERED: SODIUM POLYSTYRENE SULFONATE 15 G/60 ML BOT PO SCH (12:00)
[2018-04-16 15:56] VITALS: BP 101/54
[2018-04-16] MEDS: MONTELUKAST SODIUM 10MG TABLET PO SCH (17:34)
[2018-04-16] MEDS: ENOXAPARIN 30MG/0.3ML SYR SUBCUT SCH (19:10)
[2018-04-16 20:08] VITALS: BP 122/61
[2018-04-17] VITALS: BP 136/69
[2018-04-17] MEDS: IPRATROPIUM/ALBUTEROL 0.5-3(2.5)MG/3ML NEB INH PRN ×4 (01:06→21:16)
[2018-04-17] MEDS: HYDROMORPHONE HCL/PF 2MG/ML CPJ IV PRN ×3 (03:27→21:19)
[2018-04-17 04:39] VITALS: BP 133/64
[2018-04-17] MEDS: PANTOPRAZOLE 40MG DR TABLET PO SCH (06:34)
[2018-04-17] MEDS: LEVOTHYROXINE SODIUM 50MCG TABLET PO SCH (06:34)
[2018-04-17 08:11] LABS: BASOPHILS % 0.1 % (0.0-2.0); EOSINOPHILS % 0.2 % (0.0-5.0); HEMATOCRIT. 31.6 % (36.0-48.0); HEMOGLOBIN. 10.3 g/dL (12.0-16.0); LYMPHOCYTES % 21.5 % (20.0-50.0); MEAN CORPUSCULAR HEMOGLOBIN 28.8 pg (28.0-32.0); MEAN PLATELET VOLUME 7.9 fl (7.4-10.4); MONOCYTES % 10.2 % (2.0-8.0); PLATELET 259 x1000/uL (130-400); RED BLOOD CELL COUNT 3.59 mill/uL (4.2-5.4); RED CELL DISTRIBUTION WIDTH 14.9 % (11.6-14.6)
[2018-04-17] MEDS: BUDESONIDE 0.5MG/2ML NEB HHN SCH ×2 (08:22→21:16)
[2018-04-17 08:25] LABS: CHLORIDE 107 mEq/L (98-107)
[2018-04-17 08:39] LABS: T4 FREE 1.24 ng/dL (0.76-1.46)
[2018-04-17] MEDS ORDERED: NA PHOS,M-B/NA PHOS,DI-BA ENEMA 118ML PR PRN ×2 (10:00→11:00)
[2018-04-17] MEDS: LIDOCAINE 5% PATCH TOP SCH (10:41)
[2018-04-17] MEDS: ATORVASTATIN CALCIUM 20MG TABLET PO SCH (10:42)
[2018-04-17] MEDS: GUAIFENESIN 600MG ER TABLET PO SCH ×2 (10:42→21:08)
[2018-04-17] MEDS: CLOPIDOGREL 75MG TABLET PO SCH (10:42)
[2018-04-17] MEDS: AZITHROMYCIN 500 MG TABLET PO SCH (10:42)
[2018-04-17] MEDS: DOCUSATE SODIUM 100MG CAPSULE PO SCH ×2 (10:42→17:39)
[2018-04-17] MEDS: PREDNISONE 20MG TABLET PO SCH ×2 (10:42→17:39)
[2018-04-17] MEDS: FUROSEMIDE 20MG TABLET PO SCH ×2 (10:42→21:00)
[2018-04-17] MEDS: CARVEDILOL 3.125 MG TABLET PO SCH ×2 (10:43→21:09)
[2018-04-17] MEDS: ASPIRIN 81MG EC TABLET PO SCH (10:43)
[2018-04-17] MEDS: CEFTRIAXONE 1 G PREMIX 50 ML IV SCH (11:00)
[2018-04-17] MEDS ORDERED: LACTULOSE 20G/30ML UDC PO SCH (12:00)
[2018-04-17] MEDS: LACTULOSE 20G/30ML UDC PO SCH ×3 (12:24→23:28)
[2018-04-17] MEDS: ENOXAPARIN 40MG/0.4ML SYR SUBCUT SCH (17:42)
[2018-04-17] MEDS: MONTELUKAST SODIUM 10MG TABLET PO SCH (17:46)
[2018-04-17 20:36] VITALS: BP 149/81
[2018-04-18] VITALS: BP 123/66
[2018-04-18 05:41] LABS: BASOPHILS % 0.2 % (0.0-2.0); EOSINOPHILS % 0.1 % (0.0-5.0); HEMATOCRIT. 31.4 % (36.0-48.0); HEMOGLOBIN. 10.5 g/dL (12.0-16.0); LYMPHOCYTES % 18.1 % (20.0-50.0); MEAN CORPUSCULAR HEMOGLOBIN 29.5 pg (28.0-32.0); MONOCYTES % 9.3 % (2.0-8.0); NEUTROPHILS % 72.3 % (40.0-76.0); PLATELET 273 x1000/uL (130-400); RED BLOOD CELL COUNT 3.57 mill/uL (4.2-5.4); RED CELL DISTRIBUTION WIDTH 15.3 % (11.6-14.6)
[2018-04-18] MEDS: LACTULOSE 20G/30ML UDC PO SCH ×3 (07:03→18:00)
[2018-04-18] MEDS: LEVOTHYROXINE SODIUM 50MCG TABLET PO SCH (07:03)
[2018-04-18 08:00] VITALS: BP 148/80
[2018-04-18] MEDS: LIDOCAINE 5% PATCH TOP SCH (09:00)
[2018-04-18] MEDS: PREDNISONE 20MG TABLET PO SCH ×2 (09:18→17:34)
[2018-04-18] MEDS: AZITHROMYCIN 500 MG TABLET PO SCH (09:18)
[2018-04-18] MEDS: FAMOTIDINE 20MG TABLET PO SCH (09:18)
[2018-04-18] MEDS: CLOPIDOGREL 75MG TABLET PO SCH (09:18)
[2018-04-18] MEDS: GUAIFENESIN 600MG ER TABLET PO SCH ×2 (09:19→21:13)
[2018-04-18] MEDS: CARVEDILOL 3.125 MG TABLET PO SCH ×2 (09:19→20:49)
[2018-04-18] MEDS: FUROSEMIDE 20MG TABLET PO SCH ×2 (09:19→21:13)
[2018-04-18] MEDS: ATORVASTATIN CALCIUM 20MG TABLET PO SCH (09:19)
[2018-04-18] MEDS: DOCUSATE SODIUM 100MG CAPSULE PO SCH ×2 (09:19→17:34)
[2018-04-18] MEDS: ASPIRIN 81MG EC TABLET PO SCH (09:19)
[2018-04-18] MEDS: TRAMADOL 50MG TABLET PO PRN (09:20)
[2018-04-18] MEDS: IPRATROPIUM/ALBUTEROL 0.5-3(2.5)MG/3ML NEB INH PRN (09:28)
[2018-04-18] MEDS: BUDESONIDE 0.5MG/2ML NEB HHN SCH (09:28)
[2018-04-18] MEDS: HYDROMORPHONE HCL/PF 2MG/ML CPJ IV PRN ×2 (09:35→17:34)
[2018-04-18 12:00] VITALS: BP 140/79
[2018-04-18] MEDS: AMLODIPINE 2.5MG TABLET PO SCH ×2 (13:11→20:50)
[2018-04-18 16:00] VITALS: BP_SYST 138; BP_SYST 152; BP_DIAS 93
[2018-04-18] MEDS: MONTELUKAST SODIUM 10MG TABLET PO SCH (17:34)
[2018-04-18] MEDS: ENOXAPARIN 40MG/0.4ML SYR SUBCUT SCH (18:35)
[2018-04-18 20:00] VITALS: BP 108/69
[2018-04-19] VITALS: BP 111/79
[2018-04-19] MEDS: LACTULOSE 20G/30ML UDC PO SCH ×4 (06:00→18:18)
[2018-04-19 06:14] LABS: BASOPHILS % 0.2 % (0.0-2.0); EOSINOPHILS % 0.1 % (0.0-5.0); HEMATOCRIT. 34.1 % (36.0-48.0); HEMOGLOBIN. 11.2 g/dL (12.0-16.0); LYMPHOCYTES % 18.5 % (20.0-50.0); MEAN CORPUSCULAR HEMOGLOBIN 28.6 pg (28.0-32.0); MEAN CORPUSCULAR VOLUME 87.5 fL (81.0-99.0); MONOCYTES % 8.6 % (2.0-8.0); NEUTROPHILS % 72.6 % (40.0-76.0); PLATELET 315 x1000/uL (130-400); RED CELL DISTRIBUTION WIDTH 15.2 % (11.6-14.6)
[2018-04-19] MEDS: LEVOTHYROXINE SODIUM 50MCG TABLET PO SCH (06:14)
[2018-04-19 06:38] LABS: CHLORIDE 105 mEq/L (98-107)
[2018-04-19 08:00] VITALS: BP 140/79
[2018-04-19] MEDS: ONDANSETRON HCL 4MG/2ML INJ IV PRN (08:20)
[2018-04-19] MEDS: HYDROMORPHONE HCL/PF 2MG/ML CPJ IV PRN ×2 (08:22→14:11)
[2018-04-19] MEDS: CLOPIDOGREL 75MG TABLET PO SCH (09:07)
[2018-04-19] MEDS: FUROSEMIDE 20MG TABLET PO SCH (09:07)
[2018-04-19] MEDS: DOCUSATE SODIUM 100MG CAPSULE PO SCH ×2 (09:07→18:18)
[2018-04-19] MEDS: AZITHROMYCIN 500 MG TABLET PO SCH (09:07)
[2018-04-19] MEDS: CARVEDILOL 3.125 MG TABLET PO SCH (09:08)
[2018-04-19] MEDS: GUAIFENESIN 600MG ER TABLET PO SCH (09:08)
[2018-04-19] MEDS: AMLODIPINE 2.5MG TABLET PO SCH (09:08)
[2018-04-19] MEDS: FAMOTIDINE 20MG TABLET PO SCH (09:08)
[2018-04-19] MEDS: ASPIRIN 81MG EC TABLET PO SCH (09:08)
[2018-04-19] MEDS: LIDOCAINE 5% PATCH TOP SCH (09:09)
[2018-04-19] MEDS: ATORVASTATIN CALCIUM 20MG TABLET PO SCH (09:12)
[2018-04-19] MEDS: PREDNISONE 20MG TABLET PO SCH ×2 (09:12→18:18)
[2018-04-19 12:53] VITALS: BP 104/61
[2018-04-19] MEDS ORDERED: CLOPIDOGREL 75MG TABLET PO SCH (14:45)
[2018-04-19] MEDS ORDERED: ASPIRIN 81MG EC TABLET PO SCH (14:45)
[2018-04-19 16:51] VITALS: BP 108/58
[2018-04-19 16:58] VITALS: BP 108/58
[2018-04-19] MEDS: MONTELUKAST SODIUM 10MG TABLET PO SCH (18:18)
[2018-04-19] MEDS: ENOXAPARIN 40MG/0.4ML SYR SUBCUT SCH (18:18)
[2018-04-19 20:43] VITALS: BP 102/65
[2018-04-19] MEDS: TRAMADOL 50MG TABLET PO PRN (20:43)
== END 2018-04-19 20:40 | DRG 682 ==
LOC: 6WST 13:17
PROVIDERS: ADMIT Internal Medicine Nephrology; ATTEND Internal Medicine Nephrology
DX: N17.9 Acute kidney failure, unspecified (principal); J96.00 Acute respiratory failure, unspecified whether with hypoxia or hypercapnia; I50.23 Acute on chronic systolic (congestive) heart failure; J44.1 Chronic obstructive pulmonary disease with (acute) exacerbation; E46 Unspecified protein-calorie malnutrition; I13.0 Hypertensive heart and chronic kidney disease with heart failure and stage 1 through stage 4 chronic kidney disease, or unspecified chronic kidney disease; I69.354 Hemiplegia and hemiparesis following cerebral infarction affecting left non-dominant side; M87.88 Other osteonecrosis, other site; I25.5 Ischemic cardiomyopathy; Z95.810 Presence of automatic (implantable) cardiac defibrillator; J06.9 Acute upper respiratory infection, unspecified; D64.9 Anemia, unspecified; M54.30 Sciatica, unspecified side; E87.5 Hyperkalemia; M48.02 Spinal stenosis, cervical region; E03.9 Hypothyroidism, unspecified; E78.5 Hyperlipidemia, unspecified; G89.29 Other chronic pain; I25.10 Atherosclerotic heart disease of native coronary artery without angina pectoris; I25.2 Old myocardial infarction; I48.91 Unspecified atrial fibrillation; K59.00 Constipation, unspecified; M47.896 Other spondylosis, lumbar region; M48.061 Spinal stenosis, lumbar region without neurogenic claudication; M43.16 Spondylolisthesis, lumbar region; M47.812 Spondylosis without myelopathy or radiculopathy, cervical region; N18.9 Chronic kidney disease, unspecified; Z82.49 Family history of ischemic heart disease and other diseases of the circulatory system; Z83.3 Family history of diabetes mellitus; Z87.891 Personal history of nicotine dependence; Z90.710 Acquired absence of both cervix and uterus; Z95.5 Presence of coronary angioplasty implant and graft; Z99.81 Dependence on supplemental oxygen; Z88.8 Allergy status to other drugs, medicaments and biological substances; Z68.25 Body mass index [BMI] 25.0-25.9, adult
CPT/HCPCS: 36415; 71045; 72131; 73502; 80048; 80061; 80305; 83735; 83880; 84100; 84439; 84443; 84480; 84484; 92610; 93005; 93306; 94640; 97116; 97162; 97166; 97530; 97535; C1893; J0696; J1170; J1650; J2405; J2920; J7030; J7512; J7620; J7626